=== PATIENT | male | born 1950 | race Caucasian/White ===

== ENCOUNTER → 2018-04-13 09:30 | Outpatient (BNVA) | payer MEDICARE, BC, SELFPAY | PROVIDERS: PCP Family Medicine; Referring Provider Family Medicine; Visit Provider Orthopaedic Surgery | DX: M65.322 Trigger finger, left index finger (principal) | CPT/HCPCS: 99203; 99204 ==

== ENCOUNTER 2018-04-19 08:26 | Day surgery (SDC) | payer MEDICARE, BC, SELFPAY ==
[2018-04-19 08:57] VITALS: BP 149/74; PULSE 74; RESP 14; TEMP 36; O2SAT 95
[2018-04-19] MEDS: Lidocaine 2% Multi-Dose 50 ML VIAL (12:14)
--- NOTE | 2018-04-19 12:31 | W.PM.DSUDISC ---
Discharge Plan Disposition Patient Disposition: HOME Condition: Good Discharge Details Reason For Visit: LIF TRIGGER FINGER Attending Provider: Jesús Ulloa Primary Care Provider: Rosa Elena Smith Home Meds and New Rx's Prescriptions: New ibuprofen 800 mg tablet 800 mg PO TID PRN (Reason: pain) Qty: 20 RF: 0 Continue hydrochlorothiazide 25 mg tablet 2 mg PO DAILY RF: 0 finasteride 1 mg tablet 5 mg PO DAILY RF: 0 doxazosin 1 mg tablet 2 mg PO DAILY RF: 0 simvastatin 5 mg tablet 40 mg PO QPM RF: 0 aspirin 81 mg tablet,chewable 81 mg PO DAILY RF: 0 Discharge Instructions Additional Instructions: Bend and straighten fingers L hand 10 times/hour when awake to decrease pain and swelling. Remove dressings, shower or bathe and get incision wet after 48 hours. Leave incision uncovered when it is dry and sealed. Take ibuprofen for pain as prescribed. Follow up in 's office in 10-14 days to remove stitches. Referrals: Jesús Ulloa MD [ [facility] STAFF PHYSICIAN] - (f/u in 10-14 days) Activity:: Activity as Tolerated Remove Dressings/Wound Care:: 48 hours Shower/Bathe:: 48 hours Diet:: As Tolerated Discharge Orders Discharge Orders: Discharge Order (Routine); Ordered 04/19/18 Ordered By: Jesús Ulloa DS: Diagnosis Discharge Diagnosis (1) Trigger finger, left index finger: Status: Chronic
--- NOTE | 2018-04-19 22:34 | ROE_ITS ---
DATE OF PROCEDURE: April 19, 2018 PREOPERATIVE DIAGNOSIS: Trigger left index finger. POSTOPERATIVE DIAGNOSIS: Trigger left index finger. PROCEDURE: Tendon sheath incision for trigger finger release left index finger. SURGEON: Jesús Ulloa M.D. ANESTHESIA: Local infiltration with 1% Xylocaine solution and 0.5% Marcaine with epinephrine solutio n. INDICATIONS: This is a 68-year-old white male who has had painful locking of the left index finger f or several months. Even more disturbing to the patient is local pain over the proximal lauro of the flexor sheath whenever he is using his left hand for gripping activities. Tendon sheath incision fo r trigger finger release was recommended to alleviate his pain. The risks and complications of the p rocedure were explained to the patient in detail preoperatively. PROCEDURE: The patient was taken to the Operating Room on 04/19/18. The patient was placed supine o n the operating table with his left hand on a hand table. The left hand was then prepped and draped and free in the usual sterile fashion. I then infiltrated over the proximal lauro of the flexor she ath of the left index finger with 1% Xylocaine solution. Once good anesthesia was obtained, I made a transverse incision over the proximal lauro about 3 cm in length. The incision was carried down th rough the skin and subcu. Blunt-tipped Littler scissors were then used to mobilize the soft tissue a way from the proximal lauro of the flexor sheath. He was noted to have a small ganglion cyst also a rising from the proximal lauro which was quite thickened. I not only incised the proximal lauro, b ut I excised the small ganglion cyst and part of the tissue of the proximal lauro as well. The flex or tendons looked in good condition. The wound was irrigated with Betadine and saline solution. The wound margins were infiltrated with 0.5% Marcaine with epinephrine solution. The skin edges were ap proximated with three interrupted #4-0 nylon sutures. The wound was dressed with Xeroform gauze, paul rile gauze 4x4s, and wrapped with a 2-inch Juan Ramon bandage for a light pressure dressing. The patient tolerated the procedure well and was discharged to the Day Surgery Unit in good condition. The patient was given instructions to keep his dressings clean and dry for 48 hours. He is encourage d to flex and extend his index finger 10 times an hour while awake to prevent stiffness and swelling. After 48 hours, he may remove his dressings, shower or bathe and get his incision wet. He may leav e the wound uncovered when it is dry and sealed. He is given a prescription for pain of ibuprofen 80 0 mg p.o. q.6h. p.r.n. He will follow up in Dr. Ulloa's office in 10 to 14 days.
== END 2018-04-19 12:50 | disposition home or self-care (01) ==
PROVIDERS: PCP Nurse Practitioner Family; Visit Provider Orthopaedic Surgery
PROC: (CPT 26055; principal; 2018-04-19 10:30)
DX: M65.322 Trigger finger, left index finger (principal); I10 Essential (primary) hypertension
CPT/HCPCS: 26055

== ENCOUNTER → 2018-05-04 10:35 | Outpatient (BNVA) | payer MEDICARE, BC, SELFPAY | PROVIDERS: PCP Nurse Practitioner Family; Referring Provider Nurse Practitioner Family; Visit Provider Orthopaedic Surgery | DX: Z47.89 Encounter for other orthopedic aftercare (principal); M65.322 Trigger finger, left index finger ==

== ENCOUNTER → 2023-08-11 08:26 | Outpatient (BNVA) | payer MEDICARE, BC, SELFPAY | PROVIDERS: PCP Family Medicine; Referring Provider Family Medicine; Visit Provider Podiatrist | DX: G57.62 Lesion of plantar nerve, left lower limb (principal); R20.2 Paresthesia of skin; S90.821D Blister (nonthermal), right foot, subsequent encounter; M20.5X2 Other deformities of toe(s) (acquired), left foot; X58.XXXD Exposure to other specified factors, subsequent encounter | CPT/HCPCS: 20550; 64455; 99203; J0702 ==

== ENCOUNTER → 2023-08-11 09:34 | Outpatient (CLI) | payer MEDICARE, BC, SELFPAY ==
--- NOTE | 2023-08-11 09:15 | DI.RAD_ITS ---
Exam(s) XR FOOT LT COMPLETE EXAM: XR FOOT LT COMPLETE CLINICAL HISTORY: Dorsal, left foot pain, hallux limitus lt foot, M20.5X2, M79.672. TECHNIQUE: 2D digital imaging was performed. COMPARISON: No exams were available for comparison FINDINGS: 3 views No evidence of fracture nor diastasis of the Lisfranc joint. There are moderate-advanced degenerativ e changes in the great toe metatarsophalangeal joint. There is joint space narrowing and dorsal oste ophytes. Other articulations appear unremarkable. No pes planus. No inferior calcaneal spur. Bone density normal. No significant osseous lesions. 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 DATA REPOSITORY: RADIATION DOSE DELIVERED:
== END ==
PROVIDERS: PCP Family Medicine; Visit Provider Podiatrist
DX: M20.5X2 Other deformities of toe(s) (acquired), left foot (principal); M79.672 Pain in left foot
CPT/HCPCS: 64455; 99203; J0702; 73630

== ENCOUNTER → 2023-09-08 08:48 | Outpatient (BNVA) | payer MEDICARE, BC, SELFPAY | PROVIDERS: PCP Family Medicine; Referring Provider Family Medicine; Visit Provider Podiatrist | DX: G57.62 Lesion of plantar nerve, left lower limb (principal); M79.672 Pain in left foot; R20.2 Paresthesia of skin; S90.821A Blister (nonthermal), right foot, initial encounter; M20.22 Hallux rigidus, left foot; X58.XXXA Exposure to other specified factors, initial encounter | CPT/HCPCS: 99213 ==